=== PATIENT | female | born 2000 | race Caucasian/White ===

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

== ENCOUNTER 2020-01-01 17:38 | Emergency (ER) | payer OTHER, BC ==
[2020-01-01] MEDS ORDERED: FAMOTIDINE INJ/PF 20 MG/2 ML SDV IV ONE (17:53)
[2020-01-01] MEDS ORDERED: ALBUTEROL SULFATE 0.083% NEB 2.5 MG/3 ML AMPUL NEB ONE (17:53)
[2020-01-01] MEDS ORDERED: METHYLPREDNISOLONE INJ 125 MG/2 ML SDV IV ONE (17:53)
[2020-01-01] MEDS ORDERED: DIPHENHYDRAMINE HCL 50 MG/ML VIAL IV ONE (17:53)
--- NOTE | 2020-01-01 17:58 | ER Document Report ---
ED Medical Screen (RME) - General Chief Complaint: Allergic Reaction Stated Complaint: THROAT/FACIAL SWELLING Time Seen by Provider: 01/01/20 17:48 Primary Care Provider: ISRAEL LINO DO [Primary Care Provider] - Follow up as needed Notes: Patient is a 19-year-old female who presents emergency department with a chief complaint of allergic reaction. Patient reports she was at work prior to arrival when she was exposed to cologne. She reports that either harman or cologne is normally the trigger. Patient reports used an EpiPen at 5:25 PM. Patient reports she also took 25 mg of p.o. Benadryl. Patient reports she is on Pepcid 20 mg twice daily and did take a dose this morning. Patient reports her initial symptoms were tingling and numbness in the mouth, tingling on her tongue and throat swelling. Patient does report a history of asthma. Patient reports her symptoms have slightly improved but are still present. TRAVEL OUTSIDE OF THE [place] IN LAST 30 DAYS: No - Related Data Allergies/Adverse Reactions: fluticasone propionate [From Flonase] Allergy (Verified 01/01/20 17:52) harman Allergy (Verified 01/01/20 17:52) strawberry [[place]] Allergy (Verified 01/01/20 17:52) Past Medical History - Social History Frequency of alcohol use: None Drug Abuse: None Pulmonary Medical History: Reports: Hx Asthma Renal/ Medical History: Denies: Hx Peritoneal Dialysis Psychiatric Medical History: Reports: Hx Depression Past Surgical History: Reports: Hx Oral Surgery Course - Re-evaluation Re-evalutation: 01/01/20 17:56 Mild expiratory wheeze noted throughout all lung floyd. Will initiate albuterol neb. Patient airway is patent with no obvious swelling to the oropharynx, uvula, tongue, or lips. No facial swelling noted at this time. Patient had already had an EpiPen about 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 Patient RIVERA level 2 and was immediately placed into a room. Patient oxygen level is 100% on room air. I have greeted and performed a rapid initial assessment of this patient. A comprehensive ED assessment and evaluation of the patient, analysis of test results and completion of the medical decision making process will be conducted by additional ED providers. Doctor's Discharge - Discharge Referrals: ISRAEL LINO, [Primary Care Provider] - Follow up as needed
--- NOTE | 2020-01-01 19:40 | ER Document Report ---
ED General - General Chief Complaint: Allergic Reaction Stated Complaint: THROAT/FACIAL SWELLING Time Seen by Provider: 01/01/20 17:48 Primary Care Provider: ISRAEL LINO DO [Primary Care Provider] - Follow up as needed TRAVEL OUTSIDE OF THE [place] IN LAST 30 DAYS: No - HPI Notes: 19-year-old female with a chief complaint of allergic reaction. 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 She began to feel tight in her throat experience wheezing and swelling of her lips. She administered an EpiPen and took some oral Benadryl. This all occurred about 90 minutes prior to presentation here. Symptoms were ongoing when she arrived. She was triaged by 1 of our midlevel's and was given Solu-Medrol IV and a nebulizer treatment with DuoNeb and also Pepcid IV. She was markedly improved by the time of my initial evaluation. The patient has been worked up by embedded systems software engineer at [facility] and has a past history of recurrent severe allergic reaction when exposed to strong aromas. - Related Data Allergies/Adverse Reactions: fluticasone propionate [From Flonase] Allergy (Verified 01/01/20 17:52) harman Allergy (Verified 01/01/20 17:52) strawberry [[place]] Allergy (Verified 01/01/20 17:52) Past Medical History - General Information source: Patient, Parent - Social History Smoking Status: Never Smoker Frequency of alcohol use: None Drug Abuse: None Family History: Reviewed & Not Pertinent Patient has suicidal ideation: No Patient has homicidal ideation: No Pulmonary Medical History: Reports: Hx Asthma Renal/ Medical History: Denies: Hx Peritoneal Dialysis Psychiatric Medical History: Reports: Hx Bipolar Disorder, Hx Depression Past Surgical History: Reports: Hx Oral Surgery Review of Systems - Review of Systems Notes: Constitutional: Negative for fever. HENT: Negative for sore throat. Eyes: Negative for visual changes. Cardiovascular: Negative for chest pain. Respiratory: As per HPI. Gastrointestinal: Negative for abdominal pain, vomiting or diarrhea. Genitourinary: Negative for dysuria. Musculoskeletal: Negative for back pain. Skin: Negative for rash. Neurological: Negative for headaches, weakness or numbness. 10 point ROS negative except as marked above and in HPI. Physical Exam - Vital signs Vitals: Resp Pulse Ox 13 100 01/01/20 18:26 01/01/20 18:26 - Notes Notes: GENERAL: Well-developed well-nourished appearing in no acute distress. SKIN: Good turgor no rashes. HEAD: Normocephalic atraumatic. EYES: PERRLA. EOMI. Conjunctivae and sclerae clear. EARS: CANALS AND TMS CLEAR. NOSE: CLEAR. MOUTH: Moist mucosa. Good dentition. No stridor or edema. No drooling. NECK: Supple. No masses or thyromegaly. No adenopathy. Carotids 2+ without bruits. No JVD. BACK: Symmetrical without tenderness. CHEST: Respirations unlabored. Breath sounds clear and symmetrical. HEART: Regular rhythm. No murmur gallop or rub. ABDOMEN: Soft nontender without masses, organomegaly or rebound. Bowel sounds normally active. No bruits. GENITALIA: Deferred. EXTREMITIES: No edema. No calf tenderness. Cap refill less than 1.5 seconds. Dorsalis pedis and posterior tibial pulses 3+ and symmetrical. NEUROLOGICAL: GCS 15. Alert and oriented x3. Normal gait. Fluent speech. Cranial nerves II through XII intact. Sensorimotor and cerebellar normal. Normal tone. PSYCHIATRIC: Appropriate affect. Course - Re-evaluation Re-evalutation: 01/01/20 19:39 Patient was stabilized with administration of a single DuoNeb treatment along with IV Solu-Medrol IV Benadryl and IV famotidine. She had already taken an EpiPen prior to arrival. Patient was observed for over an hour in our facility and remained stable. She has an EpiPen at home and is instructed to continue oral antihistamines and steroids at home. She will follow-up with her embedded systems software engineer. - Vital Signs Vital signs: Temp Pulse Resp BP Pulse Ox 17 111/68 100 01/01/20 19:03 01/01/20 19:03 01/01/20 19:03 Discharge - Discharge Clinical Impression: Allergic reaction Qualifiers: Encounter type: initial encounter Qualified Code(s): T78.40XA - Allergy, uns pecified, initial encounter Condition: Stable Disposition: HOME, SELF-CARE Additional Instructions: Take prescription medications as instructed. Return here as needed for new or worsening symptoms: Pain that is worsening or unimproved Uncontrolled vomiting High fever or shaking chills Overall worsening Prescriptions: Prednisone [Deltasone 20 mg Tablet] 2 tab PO DAILY 5 Days tablet Epinephrine [Epipen 2-Silvestre] 0.3 mg IM ONCE PRN #1 packet PRN Reason: Forms: Return to Work Referrals: ISRAEL LINO DO [Primary Care Provider] - Follow up as needed
[2020-01-01 20:26] VITALS: BP 113/63
== END 2020-01-01 20:25 | disposition home or self-care (01) ==
LOC: ER 17:38
DX: T78.49XA Other allergy, initial encounter (principal); R09.89 Other specified symptoms and signs involving the circulatory and respiratory systems; R22.0 Localized swelling, mass and lump, head; X58.XXXA Exposure to other specified factors, initial encounter; Y99.0 Civilian activity done for income or pay; J45.909 Unspecified asthma, uncomplicated; Z88.8 Allergy status to other drugs, medicaments and biological substances; Z91.018 Allergy to other foods
CPT/HCPCS: 94640; 99283; 96374; 96375; J1200; J2930; S0028